=== PATIENT | male | born 1995 | race African-American/Black ===

== ENCOUNTER 2017-10-02 16:05 | Emergency (ER) | payer OTHER ==
[~2017-10-02] VITALS: Ht 172.7 cm; Wt 75.3 kg
[~2017-10-02 16:05] MED LIST: 'PARAFON FORTE500 M1 PO; CLEOCIN150 MG PO; HYDROCODONE BIT1 T11 PO; MOTRIN800 MG PO; NAPROSYN500 MG PO; NKHM
[2017-10-02] MEDS ORDERED: FLONASE ALLERG9.9 ML NAS (18:02)
[2017-10-02] MEDS ORDERED: MECLIZINE HCL25 M2 PO (18:02)
[2017-10-02] MEDS ORDERED: PREDNISONE10 MG PO (18:02)
[2017-10-02] MEDS ORDERED: CLARITIN10 MG PO (18:02)
== END 2017-10-02 18:05 | disposition home or self-care (01) ==
LOC: ED 16:05
DX: J01.20 Acute ethmoidal sinusitis, unspecified (principal); R03.0 Elevated blood-pressure reading, without diagnosis of hypertension; R42 Dizziness and giddiness; Z88.1 Allergy status to other antibiotic agents

== ENCOUNTER → 2023-07-08 | Outpatient (CLI) | payer OTHER ==
[~2023-07-08] MED LIST changes: +CLARITIN10 MG PO; +FLONASE ALLERG9.9 ML NAS; +MECLIZINE HCL25 M2 PO; +PREDNISONE10 MG PO
[2023-07-08 11:58] LABS: BASO # 0.1 10*3/uL (0.0-0.1); BASO % 1.4 % (0.0-1.0); BILIRUBIN Negative (Negative); BLOOD Negative (Negative); CLARITY Clear (Clear); COLOR Yellow (Yellow); EOS # 0.3 10*3/uL (0.0-0.4); EOS % 5.1 % (1.0-4.0); GLUCOSE Negative (Negative); KETONE Trace (Negative); LEUKO ESTERASE Negative (Negative); LYMPH # 2.3 10*3/uL (1.3-4.4); MEAN CELL VOLUME 89.5 fl (80.0-94.0); MEAN CORPUSCULAR HGB 30.3 pg (27.0-31.0); MEAN CORPUSCULAR HGB CONC 33.8 g/dl (33.0-37.0); MEAN PLATELET VOLUME 9.9 fl (9.6-12.3); MONO # 0.4 10*3/uL (0.1-1.0); NEUT # 3.1 10*3/uL (2.3-7.9); NEUT % 48.4 % (47.0-73.0); NITRITE Negative (Negative); PLATELET COUNT AUTOMATED 261 10*3/uL (130-400); RED BLOOD COUNT 5.25 10*6/uL (4.50-5.90); RED CELL DISTRI WIDTH 12.6 % (0-14.5); RETICULOCYTE % 1.84 % (0.50-2.50); WHITE BLOOD COUNT 6.3 10*3/uL (4.8-10.8)
[2023-07-08 12:19] LABS: BACTERIA TRACE; EPITHELIAL CELLS 0-2; WBC 0-2 wbc/hpf (0-5)
[2023-07-08 12:29] LABS: ALKALINE PHOSPHATASE 56 U/L (46-116); BUN 5 mg/dl (9-23); CHLORIDE 106 mmol/L (98-107); CHOLESTEROL 140 mg/dL (<200); LDL CHOLESTEROL 80 mg/dL (9-159); SGPT/ALT 13 U/L (10-49); T3 UPTAKE 24.2 % (22.4-36.7); THYROXINE (T4) TOTAL 7.1 ug/dl (4.5-10.9); TOTAL PROTEIN 7.4 gm/dL (6.0-8.0); TRIGLYCERIDES 54 mg/dl (<150); URIC ACID 4.7 mg/dL (3.7-9.2); VITAMIN D, 25-HYDROXY 27.7 ng/mL (30-100)
[2023-07-09 13:07] LABS: ANTI-DSDNA ANTIBODIES <1 IU/mL (0-9)
== END | disposition home or self-care (01) ==
LOC: LAB 11:07
PROVIDERS: ATTEND Family Medicine
DX: E55.9 Vitamin D deficiency, unspecified (principal); R79.89 Other specified abnormal findings of blood chemistry; R53.83 Other fatigue; E78.5 Hyperlipidemia, unspecified